=== PATIENT | female | born 2000 ===

== ENCOUNTER 2020-02-18 22:36 | Emergency (ER) | payer SELFPAY ==
[2020-02-18 22:43] VITALS: BP 149/67
--- NOTE | 2020-02-18 23:36 | ER Document Report ---
Doctor's Note Notes: 02/18/20 23:36 Patient had in the waiting room not able to do triage possible left without being seen
== END 2020-02-19 00:31 | disposition left against medical advice (07) ==
LOC: ER 22:36
DX: Z53.21 Procedure and treatment not carried out due to patient leaving prior to being seen by health care provider (principal)